=== PATIENT | male | born 1955 | race Asian ===

== ENCOUNTER 2016-12-29 12:57 | Emergency (ER) | payer OTHER ==
[~2016-12-29] VITALS: Ht 175.3 cm; Wt 77.1 kg
[~2016-12-29 12:57] MED LIST: AMLO2.5T PO
[2016-12-29 14:34] VITALS: BP 159/91; TEMP 98
== END 2016-12-29 14:34 | disposition home or self-care (01) ==
LOC: ED 12:57
DX: B34.9 Viral infection, unspecified (principal); J06.9 Acute upper respiratory infection, unspecified; L84 Corns and callosities; E11.621 Type 2 diabetes mellitus with foot ulcer; B07.0 Plantar wart; R11.2 Nausea with vomiting, unspecified
CPT/HCPCS: 82962; 87804; 99282

== ENCOUNTER 2017-06-16 11:04 | Emergency (ER) | payer OTHER ==
[~2017-06-16] VITALS: Ht 175.3 cm; Wt 74.8 kg
[2017-06-16 11:58] VITALS: TEMP 97.8
[2017-06-16 14:36] VITALS: BP 128/80
== END 2017-06-16 14:36 | disposition home or self-care (01) ==
LOC: ED 11:04
DX: S20.212A Contusion of left front wall of thorax, initial encounter (principal); W01.10XA Fall on same level from slipping, tripping and stumbling with subsequent striking against unspecified object, initial encounter
CPT/HCPCS: 99282

== ENCOUNTER 2017-10-19 13:29 | Emergency (ER) | payer OTHER ==
[~2017-10-19] VITALS: Ht 175.3 cm; Wt 81.6 kg
[2017-10-19 14:35] LABS: PLATELET COUNT 271 K/uL (142-355)
[2017-10-19 14:39] LABS: POTASSIUM 3.8 mmol/L (3.6-5.2)
[2017-10-19 19:19] VITALS: BP 148/90; TEMP 98
== END 2017-10-19 19:14 | disposition home or self-care (01) ==
LOC: ED 13:29
PROVIDERS: Emergency Medicine
DX: N13.30 Unspecified hydronephrosis (principal); K57.90 Diverticulosis of intestine, part unspecified, without perforation or abscess without bleeding; R74.8 Abnormal levels of other serum enzymes; R17 Unspecified jaundice
CPT/HCPCS: 36415; 80053; 80074; 81000; 82248; 85027; 87088; 96361; 96365; 99284; J0696

== ENCOUNTER 2017-10-25 11:28 | Inpatient (IN) | payer OTHER ==
[~2017-10-25] VITALS: Ht 175.3 cm; Wt 85.7 kg
[2017-10-25 12:24] LABS: PLATELET COUNT 288 K/uL (142-355)
[2017-10-25 12:30] VITALS: BP 170/60; TEMP 98; Ht 175.3 cm; Wt 85.7 kg
[2017-10-25] MEDS ORDERED: VITAMIN B1100 M1 PO (13:18)
[2017-10-25] MEDS ORDERED: AMOX875T8 PO (13:18)
[2017-10-25] MEDS ORDERED: KETO10TA34 PO (13:19)
[2017-10-25 16:00] VITALS: BP 149/78; TEMP 98.1
[2017-10-25 17:50] LABS: POTASSIUM 4.4 mmol/L (3.6-5.2)
[2017-10-25 20:00] VITALS: BP 98/57; TEMP 98.8
[2017-10-25 20:35] LABS: PARTIAL THROMBOPLASTIN TIME 34.8 SECONDS (24.5-33.6)
[2017-10-26 00:01] VITALS: BP 169/77; TEMP 98.8
[2017-10-26 04:00] VITALS: BP 156/78; TEMP 97.7
[2017-10-26 06:31] LABS: PLATELET COUNT 267 K/uL (142-355)
[2017-10-26 07:20] LABS: POTASSIUM 4.2 mmol/L (3.6-5.2)
[2017-10-26 08:00] VITALS: BP 150/79; TEMP 98
[2017-10-26 12:00] VITALS: BP 159/79; TEMP 97.4
[2017-10-26 16:00] VITALS: BP 169/75; TEMP 97.5
[2017-10-26 20:00] VITALS: BP 175/85; TEMP 97.5
[2017-10-27] VITALS: BP 143/70; TEMP 98.4
[2017-10-27 04:00] VITALS: BP 135/75; TEMP 97.7
[2017-10-27 06:10] LABS: POTASSIUM 4.1 mmol/L (3.6-5.2)
[2017-10-27 06:13] LABS: PLATELET COUNT 283 K/uL (142-355)
[2017-10-27 08:17] VITALS: BP 157/72; TEMP 97.5
== END 2017-10-27 11:25 | disposition home or self-care (01) | DRG 872 ==
LOC: MED/SURG 11:28
PROVIDERS: Family Medicine; ADMIT Nurse Practitioner Family
DX: A41.89 Other specified sepsis (principal); N39.0 Urinary tract infection, site not specified; N13.30 Unspecified hydronephrosis; I10 Essential (primary) hypertension; E11.9 Type 2 diabetes mellitus without complications
CPT/HCPCS: 36415; 36591; 80053; 80074; 81000; 83605; 83735; 84443; 84630; 85027; 85610; 85730; 87040; 87088; 93005; 94760; 96367; J3411

== ENCOUNTER 2017-12-14 12:25 | Emergency (ER) | payer OTHER ==
[~2017-12-14] VITALS: Ht 175.3 cm; Wt 88.9 kg
[~2017-12-14 12:25] MED LIST changes: +AMOX875T8 PO; +KETO10TA34 PO; +VITAMIN B1100 M1 PO
[2017-12-14 12:30] VITALS: TEMP 97.9
[2017-12-14 13:02] LABS: PLATELET COUNT 206 K/uL (142-355)
[2017-12-14 13:05] LABS: POTASSIUM 3.9 mmol/L (3.6-5.2); SODIUM 128 mmol/L (136-145)
[2017-12-14 13:16] LABS: PARTIAL THROMBOPLASTIN TIME 25.7 SECONDS (24.5-33.6)
[2017-12-14 14:30] VITALS: BP 160/84
== END 2017-12-14 14:42 | disposition home or self-care (01) ==
LOC: ED 12:25
PROVIDERS: Emergency Medicine
DX: R42 Dizziness and giddiness (principal)
CPT/HCPCS: 36415; 80053; 80307; 81000; 82550; 84484; 85027; 85610; 85730; 93005; 99283

== ENCOUNTER 2018-05-04 11:25 | Emergency (ER) | payer OTHER ==
[~2018-05-04] VITALS: Ht 175.3 cm; Wt 92.1 kg
[2018-05-04 11:30] VITALS: TEMP 98.1
[2018-05-04 13:49] LABS: PLATELET COUNT 203 K/uL (142-355)
[2018-05-04 13:53] LABS: POTASSIUM 3.4 mmol/L (3.6-5.2)
[2018-05-04] MEDS ORDERED: GLIP10TA55 PO (15:06)
[2018-05-04 15:33] VITALS: BP 138/64
== END 2018-05-04 15:35 | disposition home or self-care (01) ==
LOC: ED 11:25
PROVIDERS: Family Medicine
DX: A08.39 Other viral enteritis (principal)
CPT/HCPCS: 36415; 80053; 85027; 96361; 96374; 99284; J2405

== ENCOUNTER 2018-05-06 16:50 | Inpatient (IN) | payer OTHER ==
[~2018-05-06] VITALS: Ht 175.3 cm; Wt 85.3 kg
[~2018-05-06 16:50] MED LIST changes: +GLIP10TA55 PO
[2018-05-06 16:55] VITALS: BP 115/77; TEMP 97.9
[2018-05-06 18:32] LABS: PLATELET COUNT 261 K/uL (142-355)
[2018-05-06 19:37] LABS: POTASSIUM 3.8 mmol/L (3.6-5.2)
[2018-05-06 23:23] VITALS: BP 123/68; TEMP 97.4; Ht 175.3 cm; Wt 85.3 kg
[2018-05-07] VITALS: BP 122/78; TEMP 98.8
[2018-05-07 04:00] VITALS: BP 120/79; TEMP 97.9
[2018-05-07 08:00] VITALS: BP 100/75; TEMP 98.3
[2018-05-07 11:52] VITALS: BP 119/77; TEMP 98.1
[2018-05-07 16:00] VITALS: BP 122/73; TEMP 98.1
[2018-05-07 20:00] VITALS: BP 132/83; TEMP 97.7
[2018-05-08] VITALS: BP 128/76; TEMP 98.7
[2018-05-08 04:00] VITALS: BP 117/70; TEMP 97.6
[2018-05-08 05:47] LABS: PLATELET COUNT 235 K/uL (142-355)
[2018-05-08 05:55] LABS: POTASSIUM 3.2 mmol/L (3.6-5.2)
[2018-05-08 08:00] VITALS: BP 114/72; TEMP 97.9
[2018-05-08 12:00] VITALS: BP 105/67; TEMP 97.6
[2018-05-08 16:00] VITALS: BP 163/70; TEMP 97.7
[2018-05-08 20:00] VITALS: BP 148/84; TEMP 97.3
[2018-05-09] VITALS: BP 141/81; TEMP 97.9
[2018-05-09 04:00] VITALS: BP 126/76; TEMP 97.4
[2018-05-09 05:37] LABS: PLATELET COUNT 231 K/uL (142-355)
[2018-05-09 06:05] LABS: POTASSIUM 3.5 mmol/L (3.6-5.2)
[2018-05-09 08:00] VITALS: BP 129/68; TEMP 97.6
[2018-05-09] MEDS ORDERED: ZITHROMAX500 MG OR (11:45)
[2018-05-09 12:00] VITALS: BP 145/71; TEMP 97.8
[2018-05-09 16:00] VITALS: BP 114/73; TEMP 98
== END 2018-05-09 16:42 | disposition home or self-care (01) | DRG 372 ==
LOC: ED 16:50 → MED/SURG 21:14
PROVIDERS: ADMIT Specialist
DX: A04.5 Campylobacter enteritis (principal); N13.30 Unspecified hydronephrosis; E86.0 Dehydration; E11.9 Type 2 diabetes mellitus without complications; I10 Essential (primary) hypertension
CPT/HCPCS: 36415; 80053; 83605; 83735; 83986; 84100; 85027; 87015; 87045; 87205; 87324; 87449; 87899; 96361; 96365; 96367; 96375; 99284; J2550; J3370; J3490; J7120

== ENCOUNTER 2018-05-23 06:38 | Observation (INO) | payer OTHER ==
[~2018-05-23] VITALS: Ht 175.3 cm; Wt 87.7 kg
[2018-05-23] VITALS (7 sets, daily range): BP systolic 104–139; BP diastolic 64–84; TEMP 98–100.8; Ht 175.3 cm; Wt 87.7 kg
[~2018-05-23 06:38] MED LIST changes: +ZITHROMAX500 MG OR
[2018-05-23 07:35] LABS: PLATELET COUNT 236 K/uL (142-355)
[2018-05-23 07:47] LABS: POTASSIUM 2.8 mmol/L (3.6-5.2)
[2018-05-24] VITALS: BP 95/61; TEMP 98.1
[2018-05-24 04:00] VITALS: BP 101/63; TEMP 98.6
[2018-05-24 05:34] LABS: PLATELET COUNT 225 K/uL (142-355)
[2018-05-24 06:33] LABS: POTASSIUM 2.8 mmol/L (3.6-5.2)
[2018-05-24 08:11] VITALS: BP 87/54; TEMP 98.8
[2018-05-24 12:27] VITALS: BP 98/69; TEMP 97.9
[2018-05-24 16:00] VITALS: BP 107/64; TEMP 98.9
== END 2018-05-24 18:10 | disposition short-term general hospital (02) ==
LOC: ED 06:38 → MED/SURG 12:00
DX: N13.2 Hydronephrosis with renal and ureteral calculous obstruction (principal); E11.9 Type 2 diabetes mellitus without complications; F14.10 Cocaine abuse, uncomplicated; I10 Essential (primary) hypertension
CPT/HCPCS: 36415; 80053; 80307; 81000; 82150; 82948; 83690; 83735; 85027; 86704; 86705; 86709; 87077; 87086; 87088; 87186; 93005; 96372; 99220; 99283; G0378; J0696; J0744; J1650; J1815; J1885; J3411; J3490; Q9963

== ENCOUNTER 2018-06-06 08:53 | Outpatient (CLI) | payer OTHER ==
[2018-06-06 09:35] LABS: PLATELET COUNT 457 K/uL (142-355)
[2018-06-06 09:46] LABS: POTASSIUM 4.6 mmol/L (3.6-5.2)
== END 2018-06-06 19:53 | disposition home or self-care (01) ==
LOC: LABW 08:53
PROVIDERS: Internal Medicine Nephrology
DX: N28.89 Other specified disorders of kidney and ureter (principal)
CPT/HCPCS: 36415; 80053; 85027

== ENCOUNTER 2018-09-15 10:39 | Emergency (ER) | payer OTHER ==
[~2018-09-15] VITALS: Ht 175.3 cm; Wt 87.5 kg
[2018-09-15 10:43] VITALS: TEMP 98.4
[2018-09-15 11:17] LABS: PLATELET COUNT 222 K/uL (142-355)
[2018-09-15 11:23] LABS: POTASSIUM 3.9 mmol/L (3.6-5.2)
[2018-09-15 11:52] VITALS: BP 142/76
== END 2018-09-15 11:52 | disposition home or self-care (01) ==
LOC: ED 10:39
DX: E11.65 Type 2 diabetes mellitus with hyperglycemia (principal); R53.81 Other malaise
CPT/HCPCS: 36415; 80053; 81000; 83036; 85027; 99283

== ENCOUNTER 2018-10-15 08:54 | Observation (INO) | payer OTHER ==
[~2018-10-15] VITALS: Ht 175.3 cm; Wt 96.9 kg
[2018-10-15 09:10] VITALS: BP 111/66; TEMP 97.9
[2018-10-15 09:28] LABS: PLATELET COUNT 264 K/uL (142-355)
[2018-10-15 09:39] LABS: SODIUM 134 mmol/L (136-145)
[2018-10-15 10:15] VITALS: BP 120/72
[2018-10-15 16:53] LABS: PLATELET COUNT 231 K/uL (142-355)
[2018-10-15 17:03] LABS: POTASSIUM 3.7 mmol/L (3.6-5.2)
[2018-10-15 18:03] VITALS: BP 132/99; TEMP 98.8; Ht 175.3 cm; Wt 96.9 kg
[2018-10-15] MEDS ORDERED: LISITAB PO (19:45)
[2018-10-15] MEDS ORDERED: LOVA20TA PO (19:46)
[2018-10-15] MEDS ORDERED: TRADJENTA5 M1 PO (19:47)
[2018-10-15] MEDS ORDERED: CIPRO500 MG PO (19:48)
[2018-10-15] MEDS ORDERED: FISH OIL1 C10 PO (19:48)
[2018-10-15] MEDS ORDERED: GLIP10TA55 PO (19:49)
[2018-10-15] MEDS ORDERED: ASA LOW DOSE81 MG PO (19:50)
[2018-10-15] MEDS ORDERED: NEURONTIN 100M100 MG PO (19:53)
[2018-10-15 20:00] VITALS: BP 116/62; TEMP 98.2
[2018-10-16] VITALS: BP 137/71; TEMP 97.6
[2018-10-16 04:00] VITALS: BP 127/69; TEMP 97.9
[2018-10-16 08:03] VITALS: BP 132/53; TEMP 97.06
[2018-10-16 12:03] VITALS: BP 136/75; TEMP 98.3
[2018-10-16 13:40] LABS: POTASSIUM 4.1 mmol/L (3.6-5.2)
[2018-10-16 16:03] VITALS: BP 148/77; TEMP 97.8
[2018-10-16 20:00] VITALS: BP 155/72; TEMP 98.8
[2018-10-17] VITALS: BP 169/83; TEMP 98.5
[2018-10-17 04:00] VITALS: BP 177/82; TEMP 98.5
[2018-10-17 08:00] VITALS: BP 178/92; TEMP 98.3
== END 2018-10-17 11:15 | disposition home or self-care (01) ==
LOC: ED 08:54 → MED/SURG 12:10
PROVIDERS: Internal Medicine; ADMIT Allergy & Immunology
DX: F14.129 Cocaine abuse with intoxication, unspecified (principal); E11.22 Type 2 diabetes mellitus with diabetic chronic kidney disease; N18.4 Chronic kidney disease, stage 4 (severe); I10 Essential (primary) hypertension; F41.8 Other specified anxiety disorders; A08.8 Other specified intestinal infections; E86.0 Dehydration; R00.2 Palpitations
CPT/HCPCS: 36415; 80048; 80053; 80307; 81000; 82550; 82553; 84484; 85027; 87077; 87086; 87088; 87186; 93005; 96361; 96365; 96366; 96374; 99220; 99284; G0378; J2060; J2405

== ENCOUNTER 2018-12-08 14:58 | Outpatient (CLI) | payer OTHER ==
[~2018-12-08 14:58] MED LIST changes: +ASA LOW DOSE81 MG PO; +CIPRO500 MG PO; +FISH OIL1 C10 PO; +LISITAB PO; +LOVA20TA PO; +NEURONTIN 100M100 MG PO; +TRADJENTA5 M1 PO
[2018-12-08 15:39] LABS: POTASSIUM 4.6 mmol/L (3.6-5.2)
== END 2018-12-08 19:52 | disposition home or self-care (01) ==
LOC: LABW 14:58
PROVIDERS: Internal Medicine Nephrology
DX: N18.3 Chronic kidney disease, stage 3 (moderate) (principal)
CPT/HCPCS: 36415; 80048

== ENCOUNTER 2019-01-01 10:13 | Emergency (ER) | payer OTHER ==
[~2019-01-01] VITALS: Ht 175.3 cm; Wt 96.6 kg
[2019-01-01 11:14] LABS: PLATELET COUNT 257 K/uL (142-355)
[2019-01-01 11:23] LABS: POTASSIUM 4.1 mmol/L (3.6-5.2)
[2019-01-01 12:16] VITALS: BP 140/60; TEMP 97.6
== END 2019-01-01 12:15 | disposition home or self-care (01) ==
LOC: ED 10:13
PROVIDERS: Family Medicine
DX: R05 Cough (principal); N28.9 Disorder of kidney and ureter, unspecified
CPT/HCPCS: 36415; 80053; 85027; 87502; 99283

== ENCOUNTER 2019-03-20 11:25 | Outpatient (CLI) | payer OTHER ==
[2019-03-20 11:39] LABS: PLATELET COUNT 225 K/uL (142-355)
[2019-03-20 12:21] LABS: POTASSIUM 5.3 mmol/L (3.6-5.2)
== END 2019-03-20 20:23 | disposition home or self-care (01) ==
LOC: LABW 11:25
PROVIDERS: Internal Medicine Nephrology
DX: N18.3 Chronic kidney disease, stage 3 (moderate) (principal); E11.9 Type 2 diabetes mellitus without complications; N28.9 Disorder of kidney and ureter, unspecified
CPT/HCPCS: 36415; 80053; 84100; 85027

== ENCOUNTER 2019-04-01 13:21 | Emergency (ER) | payer OTHER ==
[~2019-04-01] VITALS: Ht 175.3 cm; Wt 90.7 kg
[2019-04-01 13:25] VITALS: TEMP 98.6
[2019-04-01 15:05] VITALS: BP 134/75
== END 2019-04-01 15:05 | disposition home or self-care (01) ==
LOC: ED 13:21
DX: S20.212A Contusion of left front wall of thorax, initial encounter (principal); S70.01XA Contusion of right hip, initial encounter; V85.6XXA Passenger of special construction vehicle injured in nontraffic accident, initial encounter; Y92.89 Other specified places as the place of occurrence of the external cause
CPT/HCPCS: 99283

== ENCOUNTER 2019-05-23 09:25 | Emergency (ER) | payer OTHER ==
[~2019-05-23] VITALS: Ht 175.3 cm; Wt 90.7 kg
[2019-05-23 10:25] LABS: PLATELET COUNT 310 K/uL (142-355)
[2019-05-23 10:37] LABS: POTASSIUM 4.3 mmol/L (3.6-5.2)
[2019-05-23 11:21] VITALS: BP 116/70; TEMP 97.6
== END 2019-05-23 11:22 | disposition home or self-care (01) ==
LOC: ED 09:25
PROVIDERS: Family Medicine
DX: N39.0 Urinary tract infection, site not specified (principal); N28.9 Disorder of kidney and ureter, unspecified; J43.9 Emphysema, unspecified
CPT/HCPCS: 80053; 81000; 85027; 87077; 87086; 87088; 87186; 99283

== ENCOUNTER 2019-12-17 14:01 | Emergency (ER) | payer OTHER ==
[~2019-12-17] VITALS: Ht 175.3 cm; Wt 93.0 kg
[2019-12-17 14:58] VITALS: BP 152/83; TEMP 98.1
== END 2019-12-17 15:05 | disposition home or self-care (01) ==
LOC: ED 14:01
PROC: 2W3LX1Z Immobilization of Right Lower Extremity using Splint (ICD-10-PCS; principal; 2019-12-17)
DX: M70.51 Other bursitis of knee, right knee (principal); W22.8XXA Striking against or struck by other objects, initial encounter; Y93.89 Activity, other specified; Y92.89 Other specified places as the place of occurrence of the external cause
CPT/HCPCS: 96372; 99283; J1885

== ENCOUNTER 2019-12-28 07:40 | Emergency (ER) | payer OTHER ==
[~2019-12-28] VITALS: Ht 175.3 cm; Wt 97.5 kg
[2019-12-28 07:51] VITALS: TEMP 98
[2019-12-28] MEDS ORDERED: EQL ASPIRIN325 M1 PO (08:04)
[2019-12-28] MEDS ORDERED: VICTOZA18 MG/3 ML SC (08:04)
[2019-12-28] MEDS ORDERED: MOBIC7.5 M1 PO (08:05)
[2019-12-28 10:05] VITALS: BP 121/79
== END 2019-12-28 10:05 | disposition home or self-care (01) ==
LOC: ED 07:40
DX: M17.11 Unilateral primary osteoarthritis, right knee (principal); M47.816 Spondylosis without myelopathy or radiculopathy, lumbar region; M25.561 Pain in right knee; M54.5 Low back pain
CPT/HCPCS: 99283

== ENCOUNTER 2020-07-12 02:28 | Emergency (ER) | payer OTHER ==
[~2020-07-12] VITALS: Ht 175.3 cm; Wt 71.2 kg
[~2020-07-12 02:28] MED LIST changes: +EQL ASPIRIN325 M1 PO; +MOBIC7.5 M1 PO; +VICTOZA18 MG/3 ML SC
[2020-07-12 02:42] VITALS: BP 152/96; TEMP 98.3
== END 2020-07-12 02:52 | disposition home or self-care (01) ==
LOC: ED 02:28
DX: R05 Cough (principal); Z77.098 Contact with and (suspected) exposure to other hazardous, chiefly nonmedicinal, chemicals
CPT/HCPCS: 99281

== ENCOUNTER 2020-09-18 14:26 | Emergency (ER) | payer OTHER ==
[~2020-09-18] VITALS: Ht 175.3 cm; Wt 71.2 kg
[2020-09-18 14:37] VITALS: BP 119/80; TEMP 99.8
[2020-09-18 15:07] LABS: PLATELET COUNT 269 K/uL (142-355)
[2020-09-18 15:16] LABS: POTASSIUM 3.6 mmol/L (3.6-5.2); SODIUM 135 mmol/L (136-145)
[2020-09-18 15:17] LABS: PARTIAL THROMBOPLASTIN TIME 29.6 SECONDS (24.5-33.6)
== END 2020-09-18 15:29 | disposition still patient (30) ==
LOC: ED 14:26
PROVIDERS: Hospitalist
DX: R42 Dizziness and giddiness (principal); H53.8 Other visual disturbances
CPT/HCPCS: 80053; 82550; 83880; 84484; 85027; 85610; 85730; 93005; 99283

== ENCOUNTER 2020-10-03 21:57 | Emergency (ER) | payer OTHER ==
[~2020-10-03] VITALS: Ht 175.3 cm; Wt 83.0 kg
[2020-10-03 23:41] LABS: PLATELET COUNT 233 K/uL (142-355)
[2020-10-03 23:52] LABS: POTASSIUM 4.4 mmol/L (3.6-5.2)
[2020-10-04 00:53] VITALS: BP 170/92
== END 2020-10-04 00:53 | disposition home or self-care (01) ==
LOC: ED 21:57
PROVIDERS: Emergency Medicine Emergency Medical Services
DX: E11.65 Type 2 diabetes mellitus with hyperglycemia (principal); Z79.84 Long term (current) use of oral hypoglycemic drugs; Z79.899 Other long term (current) drug therapy
CPT/HCPCS: 36415; 80053; 80307; 81000; 83690; 85027; 96360; 96375; 99284; J1815

== ENCOUNTER 2021-08-31 12:29 | Inpatient (IN) | payer OTHER ==
[~2021-08-31] VITALS: Ht 175.3 cm; Wt 87.3 kg
[2021-08-31 12:33] VITALS: BP 178/67; TEMP 98.8
[2021-08-31 13:00] VITALS: BP 177/74
[2021-08-31 13:09] LABS: PLATELET COUNT 259 K/uL (142-355)
[2021-08-31 13:24] LABS: POTASSIUM 3.9 mmol/L (3.6-5.2)
[2021-08-31 13:30] VITALS: BP 198/75
[2021-08-31 14:00] VITALS: BP 176/75
[2021-08-31 15:43] VITALS: BP 201/113; TEMP 97.4; Ht 175.3 cm; Wt 87.3 kg
[2021-08-31 20:00] VITALS: BP 170/70; TEMP 97.6
[2021-09-01] VITALS: BP 110/60; TEMP 98.5
[2021-09-01 04:00] VITALS: BP 130/70; TEMP 98.6
[2021-09-01 04:57] LABS: PLATELET COUNT 251 K/uL (142-355)
[2021-09-01 05:27] LABS: POTASSIUM 3.5 mmol/L (3.6-5.2)
[2021-09-01 08:00] VITALS: BP 127/70; TEMP 99
[2021-09-01] MEDS ORDERED: ENTERIC COATED325 MG PO (12:33)
[2021-09-01] MEDS ORDERED: ATOR20TA2 PO (12:33)
[2021-09-01] MEDS ORDERED: GLUCOTROL XL 5MG TAB PO (12:34)
[2021-09-01] MEDS ORDERED: CARV6.25 PO (12:34)
[2021-09-01] MEDS ORDERED: LISI20TA11 PO (12:35)
[2021-09-01] MEDS ORDERED: NITR0.4S SL (12:37)
== END 2021-09-01 14:51 | disposition home or self-care (01) | DRG 638 ==
LOC: ED 12:29 → MED/SURG 14:00
PROVIDERS: Hospitalist; ADMIT Internal Medicine; ATTEND Internal Medicine
DX: E11.65 Type 2 diabetes mellitus with hyperglycemia (principal); N17.8 Other acute kidney failure; E78.49 Other hyperlipidemia; I73.89 Other specified peripheral vascular diseases; R53.1 Weakness; E11.22 Type 2 diabetes mellitus with diabetic chronic kidney disease; I12.9 Hypertensive chronic kidney disease with stage 1 through stage 4 chronic kidney disease, or unspecified chronic kidney disease; N18.30 Chronic kidney disease, stage 3 unspecified
CPT/HCPCS: 36415; 80048; 80053; 80307; 80320; 81002; 82550; 83880; 84484; 85027; 85610; 85730; 87635; 93005; 94760; 96360; 96375; 99284; J0360; J1650; J1815; J3490; U0003

== ENCOUNTER 2021-12-31 14:28 | Emergency (ER) | payer OTHER ==
[~2021-12-31] VITALS: Ht 175.3 cm; Wt 77.1 kg
[~2021-12-31 14:28] MED LIST changes: +ATOR20TA2 PO; +CARV6.25 PO; +ENTERIC COATED325 MG PO; +GLUCOTROL XL 5MG TAB PO; +LISI20TA11 PO; +NITR0.4S SL
[2021-12-31 15:20] LABS: PLATELET COUNT 250 K/uL (142-355)
[2021-12-31 16:02] LABS: POTASSIUM 3.7 mmol/L (3.6-5.2)
[2021-12-31 17:30] VITALS: BP 132/76; TEMP 97.9
== END 2021-12-31 17:30 | disposition home or self-care (01) ==
LOC: ED 14:28
PROVIDERS: Hospitalist
DX: G62.89 Other specified polyneuropathies (principal)
CPT/HCPCS: 80053; 80320; 82550; 83880; 84484; 85027; 85610; 85730; 93005; 96360; 96375; 99284; J1885; J2405

== ENCOUNTER 2022-01-22 08:59 | Inpatient (IN) | payer OTHER ==
[~2022-01-22] VITALS: Ht 175.3 cm; Wt 84.4 kg
[2022-01-22] VITALS (8 sets, daily range): BP systolic 144–216; BP diastolic 70–109; TEMP 97.1–98.6; Ht 175.3 cm; Wt 84.4 kg
[2022-01-22 09:32] LABS: PLATELET COUNT 233 K/uL (142-355)
[2022-01-22 09:43] LABS: POTASSIUM 3.9 mmol/L (3.6-5.2)
[2022-01-22 09:58] LABS: PARTIAL THROMBOPLASTIN TIME 24.7 SECONDS (24.5-33.6)
[2022-01-23] VITALS: BP 156/78; TEMP 98.3
[2022-01-23 04:00] VITALS: BP 144/74; TEMP 98.4
[2022-01-23 08:00] VITALS: BP 144/72; TEMP 97.9
[2022-01-23] MEDS ORDERED: ATOR20TA2 PO (08:30)
[2022-01-23] MEDS ORDERED: CARV6.25 PO (08:30)
[2022-01-23] MEDS ORDERED: GLUCOTROL XL 5MG TAB PO (08:31)
[2022-01-23] MEDS ORDERED: LISI20TA11 PO (08:31)
== END 2022-01-23 10:33 | disposition home or self-care (01) | DRG 552 ==
LOC: ED 08:59 → MED/SURG 10:00
PROVIDERS: ADMIT Hospitalist; ATTEND Internal Medicine Endocrinology, Diabetes & Metabolism
DX: M48.02 Spinal stenosis, cervical region (principal); N17.8 Other acute kidney failure; R53.1 Weakness; E11.40 Type 2 diabetes mellitus with diabetic neuropathy, unspecified; E11.65 Type 2 diabetes mellitus with hyperglycemia; E78.49 Other hyperlipidemia; K57.90 Diverticulosis of intestine, part unspecified, without perforation or abscess without bleeding; E11.22 Type 2 diabetes mellitus with diabetic chronic kidney disease; I12.9 Hypertensive chronic kidney disease with stage 1 through stage 4 chronic kidney disease, or unspecified chronic kidney disease; N18.31 Chronic kidney disease, stage 3a; Z90.5 Acquired absence of kidney
CPT/HCPCS: 80053; 80307; 80320; 82043; 82550; 83036; 83880; 84484; 85027; 85610; 85730; 87635; 93005; 94760; 99284; J1650; U0003

== ENCOUNTER 2022-04-22 07:52 | Emergency (ER) | payer OTHER ==
[~2022-04-22] VITALS: Ht 175.3 cm; Wt 84.4 kg
[2022-04-22 08:45] LABS: POTASSIUM 3.5 mmol/L (3.6-5.2)
[2022-04-22 08:57] LABS: PLATELET COUNT 224 K/uL (142-355)
[2022-04-22 10:50] VITALS: BP 168/92; TEMP 97.8
== END 2022-04-22 10:50 | disposition home or self-care (01) ==
LOC: ED 07:52
PROVIDERS: Emergency Medicine Emergency Medical Services
DX: M54.59 Other low back pain (principal); G89.29 Other chronic pain; M51.27 Other intervertebral disc displacement, lumbosacral region; M79.604 Pain in right leg
CPT/HCPCS: 80053; 83735; 84484; 85027; 85610; 93005; 96372; 99283; J1815

== ENCOUNTER 2022-06-13 14:47 | Emergency (ER) | payer OTHER ==
[~2022-06-13] VITALS: Ht 175.3 cm; Wt 72.6 kg
[2022-06-13 15:01] VITALS: BP 149/90; TEMP 97.3
[2022-06-13 15:26] LABS: PLATELET COUNT 211 K/uL (142-355)
[2022-06-13 15:41] LABS: POTASSIUM 4.2 mmol/L (3.6-5.2)
[2022-06-13 15:42] LABS: PARTIAL THROMBOPLASTIN TIME 24.6 SECONDS (24.5-33.6)
[2022-06-13 18:00] VITALS: BP 198/101
[2022-06-13 18:44] VITALS: BP 154/92
== END 2022-06-13 19:20 | disposition left against medical advice (07) ==
LOC: ED 14:47 → MED/SURG 17:46 → ED 17:46 → MED/SURG 19:20
PROVIDERS: Emergency Medicine
DX: G45.8 Other transient cerebral ischemic attacks and related syndromes (principal); E11.65 Type 2 diabetes mellitus with hyperglycemia; Z79.84 Long term (current) use of oral hypoglycemic drugs; Z53.29 Procedure and treatment not carried out because of patient's decision for other reasons
CPT/HCPCS: 36415; 80053; 80307; 81002; 81015; 84484; 85027; 85610; 85730; 87635; 93005; 96360; 96361; 96374; 99284; J1815; U0003

== ENCOUNTER 2022-07-28 18:18 | Emergency (ER) | payer OTHER ==
[~2022-07-28] VITALS: Ht 175.3 cm; Wt 83.9 kg
[2022-07-28 20:08] LABS: PLATELET COUNT 206 K/uL (142-355)
[2022-07-28 20:19] LABS: POTASSIUM 3.5 mmol/L (3.6-5.2)
[2022-07-28 20:27] LABS: PARTIAL THROMBOPLASTIN TIME 25.9 SECONDS (24.5-33.6)
[2022-07-28 22:40] VITALS: BP 173/80; TEMP 98
== END 2022-07-28 22:40 | disposition home or self-care (01) ==
LOC: ED 18:18
PROVIDERS: Emergency Medicine
DX: E11.40 Type 2 diabetes mellitus with diabetic neuropathy, unspecified (principal); Z79.84 Long term (current) use of oral hypoglycemic drugs; Z51.81 Encounter for therapeutic drug level monitoring
CPT/HCPCS: 80053; 81002; 84484; 85027; 85610; 85730; 93005; 99283

== ENCOUNTER 2022-10-23 16:49 | Observation (INO) | payer OTHER ==
[~2022-10-23] VITALS: Ht 175.3 cm; Wt 77.6 kg
[2022-10-23] VITALS (7 sets, daily range): BP systolic 92–167; BP diastolic 48–89; TEMP 98.5–98.7; Ht 175.3 cm; Wt 77.6 kg
[2022-10-23 17:42] LABS: PLATELET COUNT 266 K/uL (142-355)
[2022-10-23 17:50] LABS: POTASSIUM 3.6 mmol/L (3.6-5.2)
[2022-10-24 03:40] VITALS: BP 140/74; TEMP 98.6
[2022-10-24 08:00] VITALS: BP 152/85; TEMP 98.5
[2022-10-24 12:00] VITALS: BP 176/67; TEMP 98.1
[2022-10-24] MEDS ORDERED: DECADRON4 MG PO (12:30)
[2022-10-24] MEDS ORDERED: TRAMADOL HYDROC50 MG PO (12:30)
== END 2022-10-24 18:19 | disposition home or self-care (01) ==
LOC: ED 16:49 → MED/SURG 19:10
PROVIDERS: ADMIT Family Medicine; ATTEND Internal Medicine
DX: R42 Dizziness and giddiness (principal); F14.10 Cocaine abuse, uncomplicated; I95.89 Other hypotension; E78.49 Other hyperlipidemia; M54.89 Other dorsalgia; M15.8 Other polyosteoarthritis; E11.22 Type 2 diabetes mellitus with diabetic chronic kidney disease; E11.65 Type 2 diabetes mellitus with hyperglycemia; I12.9 Hypertensive chronic kidney disease with stage 1 through stage 4 chronic kidney disease, or unspecified chronic kidney disease; N18.4 Chronic kidney disease, stage 4 (severe); Z79.4 Long term (current) use of insulin; Z79.899 Other long term (current) drug therapy; Z51.81 Encounter for therapeutic drug level monitoring
CPT/HCPCS: 80053; 80307; 80320; 81002; 85027; 87635; 93005; 96360; 96361; 99220; 99283; 99284; G0378; U0003

== ENCOUNTER 2022-12-10 13:46 | Emergency (ER) | payer OTHER ==
[~2022-12-10] VITALS: Ht 175.3 cm; Wt 77.6 kg
[~2022-12-10 13:46] MED LIST changes: +DECADRON4 MG PO; +TRAMADOL HYDROC50 MG PO
[2022-12-10 13:52] VITALS: BP 129/79; TEMP 97.9
== END 2022-12-10 15:00 | disposition home or self-care (01) ==
LOC: ED 13:46
DX: M54.59 Other low back pain (principal); G89.29 Other chronic pain
CPT/HCPCS: 96372; 99282; J1885

== ENCOUNTER 2023-01-31 12:27 | Emergency (ER) | payer OTHER ==
[~2023-01-31] VITALS: Ht 175.3 cm; Wt 81.2 kg
[2023-01-31 12:56] LABS: PLATELET COUNT 258 K/uL (142-355)
[2023-01-31 13:52] VITALS: BP 158/86; TEMP 98.1
== END 2023-01-31 13:52 | disposition home or self-care (01) ==
LOC: ED 12:27
PROVIDERS: Internal Medicine
DX: R53.81 Other malaise (principal)
CPT/HCPCS: 36415; 80053; 80307; 80320; 81002; 84484; 85027; 93005; 99283

== ENCOUNTER 2023-04-10 09:42 | Emergency (ER) | payer OTHER ==
[~2023-04-10] VITALS: Ht 175.3 cm; Wt 76.7 kg
[2023-04-10 09:48] VITALS: TEMP 98
[2023-04-10 10:43] LABS: PLATELET COUNT 219 K/uL (142-355)
[2023-04-10 10:59] LABS: POTASSIUM 4.2 mmol/L (3.6-5.2)
[2023-04-10 12:14] VITALS: BP 148/76
== END 2023-04-10 12:17 | disposition home or self-care (01) ==
LOC: ED 09:42
PROVIDERS: Emergency Medicine
DX: K59.00 Constipation, unspecified (principal); R11.2 Nausea with vomiting, unspecified; E86.0 Dehydration; E11.65 Type 2 diabetes mellitus with hyperglycemia; F17.290 Nicotine dependence, other tobacco product, uncomplicated; F10.90 Alcohol use, unspecified, uncomplicated; Z79.4 Long term (current) use of insulin; Z79.85 Long-term (current) use of injectable non-insulin antidiabetic drugs; E78.5 Hyperlipidemia, unspecified; K21.9 Gastro-esophageal reflux disease without esophagitis; R03.1 Nonspecific low blood-pressure reading
CPT/HCPCS: 36415; 80053; 80307; 80320; 81002; 82150; 83690; 83880; 84484; 85027; 93005; 96361; 96374; 96375; 96376; 99284; J0360; J2405